=== PATIENT | female | born 1945 | race Caucasian/White ===

== ENCOUNTER 2018-05-07 10:46 | Emergency (ER) | payer OTHER ==
[~2018-05-07] VITALS: Ht 172.7 cm; Wt 87.1 kg
[2018-05-07] MEDS ORDERED: NORCO 5-325 TA1 EACH PO (12:55)
== END 2018-05-07 13:11 | disposition home or self-care (01) ==
LOC: ED 10:46
DX: S32.039A Unspecified fracture of third lumbar vertebra, initial encounter for closed fracture (principal); R03.0 Elevated blood-pressure reading, without diagnosis of hypertension; Z88.0 Allergy status to penicillin; Z88.1 Allergy status to other antibiotic agents; Z88.8 Allergy status to other drugs, medicaments and biological substances; Z88.2 Allergy status to sulfonamides; W18.2XXA Fall in (into) shower or empty bathtub, initial encounter; Y93.89 Activity, other specified; Y92.091 Bathroom in other non-institutional residence as the place of occurrence of the external cause; Y99.8 Other external cause status

== ENCOUNTER 2019-06-30 12:29 | Emergency (ER) | payer OTHER ==
[~2019-06-30] VITALS: Ht 175.2 cm; Wt 77.1 kg
[~2019-06-30 12:29] MED LIST: NORCO 5-325 TA1 EACH PO
[2019-06-30] MEDS ORDERED: MEDROL DOSEPAK4 MG PO (14:54)
== END 2019-06-30 15:00 | disposition home or self-care (01) ==
LOC: ED 12:29
DX: T78.49XA Other allergy, initial encounter (principal); Z88.0 Allergy status to penicillin; Z88.1 Allergy status to other antibiotic agents; Z88.8 Allergy status to other drugs, medicaments and biological substances; Z88.2 Allergy status to sulfonamides; X58.XXXA Exposure to other specified factors, initial encounter